=== PATIENT | female | born 1945 | race Caucasian/White ===

== ENCOUNTER → 2016-11-22 | Outpatient (CLI) | payer MEDICARE ==
--- NOTE | 2016-11-23 13:22 | MM ---
Reason for exam: screening (asymptomatic). Last mammogram was performed 1 year ago. History: Patient is postmenopausal and is nulliparous. Family history of breast cancer in mother at age 80. 2 benign excisional biopsies of the right breast, 1989. Physical Findings: A clinical breast exam by your physician is recommended on an annual basis and results should be correlated with mammographic findings. MG 3D Screening Mammo W/Cad Bilateral CC and MLO view(s) were taken. Prior study comparison: November 17, 2015, bilateral MG screening mammo w CAD. March 23, 2014, bilateral MG screening mammo w CAD. The breast tissue is extremely dense which could obscure a lesion on mammography. Benign calcifications. There is chronic nodularity bilaterally. There is no dominant lesion. No significant changes when compared with prior studies. ASSESSMENT: Benign, BI-RAD 2 RECOMMENDATION: Routine screening mammogram of both breasts in 1 year.
== END | disposition home or self-care (01) ==
LOC: RADMAMWWP 14:24
PROVIDERS: ATTEND Internal Medicine
DX: Z12.31 Encounter for screening mammogram for malignant neoplasm of breast (principal)
CPT/HCPCS: 77063; G0202

== ENCOUNTER → 2017-12-10 | Outpatient (CLI) | payer MEDICARE ==
--- NOTE | 2017-12-12 10:56 | MM ---
Reason for exam: screening (asymptomatic). Last mammogram was performed 1 year and 1 month ago. History: Patient is postmenopausal and is nulliparous. Family history of breast cancer in mother at age 80. 2 benign excisional biopsies of the right breast, 1989. Physical Findings: A clinical breast exam by your physician is recommended on an annual basis and results should be correlated with mammographic findings. MG 3D Screening Mammo W/Cad Bilateral CC and MLO view(s) were taken. Technologist: RT David (R)(M) Prior study comparison: November 22, 2016, bilateral MG 3d screening mammo w/cad. November 17, 2015, bilateral MG screening mammo w CAD. The breast tissue is extremely dense which could obscure a lesion on mammography. Benign appearing bilateral calcifications. No suspicious abnormality. No significant changes when compared with prior studies. ASSESSMENT: Benign, BI-RAD 2 RECOMMENDATION: Routine screening mammogram of both breasts in 1 year.
== END | disposition home or self-care (01) ==
LOC: RADMAMWWP 12:47
PROVIDERS: ATTEND Internal Medicine
DX: Z12.31 Encounter for screening mammogram for malignant neoplasm of breast (principal)
CPT/HCPCS: 77063; 77067

== ENCOUNTER → 2019-01-06 | Outpatient (CLI) | payer MEDICARE ==
--- NOTE | 2019-01-07 10:12 | MM ---
Reason for exam: screening (asymptomatic). Last mammogram was performed 1 year and 1 month ago. History: Patient is postmenopausal and is nulliparous. Family history of breast cancer in mother at age 80. 2 benign excisional biopsies of the right breast, 1989. Physical Findings: A clinical breast exam by your physician is recommended on an annual basis and results should be correlated with mammographic findings. MG 3D Screening Mammo W/Cad Bilateral CC and MLO view(s) were taken. Prior study comparison: December 10, 2017, bilateral MG 3d screening mammo w/cad. November 22, 2016, bilateral MG 3d screening mammo w/cad. The breast tissue is heterogeneously dense. This may lower the sensitivity of mammography. There are benign appearing round dystrophic calcifications bilaterally. There is no discrete abnormality. ASSESSMENT: Benign, BI-RAD 2 RECOMMENDATION: Routine screening mammogram of both breasts in 1 year.
== END | disposition home or self-care (01) ==
LOC: RADMAMWWP 10:51
PROVIDERS: ATTEND Internal Medicine
DX: Z12.31 Encounter for screening mammogram for malignant neoplasm of breast (principal)
CPT/HCPCS: 77063; 77067

== ENCOUNTER → 2019-02-27 | Outpatient (CLI) | payer MEDICARE ==
--- NOTE | 2019-02-27 14:51 | US ---
EXAMINATION TYPE: US venous doppler duplex LE LT DATE OF EXAM: 02/27/2019 2:32 PM COMPARISON: NONE CLINICAL HISTORY: ,M79.662 PAIN IN LT LOWER LEG. SIDE PERFORMED: Left TECHNIQUE: The lower extremity deep venous system is examined utilizing real time linear array sonog balta with graded compression, doppler sonography and color-flow sonography. VESSELS IMAGED: External Iliac Vein (EIV) Common Femoral Vein Deep Femoral Vein Greater Saphenous Vein * Femoral Vein Popliteal Vein Small Saphenous Vein * Proximal Calf Veins (* superficial vessels) Grayscale, color doppler, spectral doppler imaging performed of the deep veins of the left lower extr emity. There is normal flow, compressibility, vascular waveforms. Left Leg: Negative for DVT IMPRESSION: No sonographic evidence of deep venous thrombosis within the left lower extremity.
--- NOTE | 2019-02-27 15:08 | BD ---
EXAMINATION TYPE: Axial Bone Density DATE OF EXAM: 02/27/2019 COMPARISON: 11.17.2015 CLINICAL HISTORY: 73 YR OLD FEMALE....ICD-10 CODE: M85.89 OSTEOPENIA OF MULTIPLE SITES Height: 62.4 Weight: 144 FRAX RISK QUESTIONS: NOTHING TO NOTE HERE RISK FACTORS HISTORY OF: Active: YES Postmenopausal woman: YES IN HER EARLY 50s MEDICATIONS: Osteoporosis Medications: YES, FOSAMAX IN THE PAST FOR A FEW MONTHS Additional Medications: CINPERENE, REFLUX MEDS, STATIN FOR CHOLESTEROL, CALCIUM AND MULTIVITAMIN, Additional History: CHOLESTEROL, REFLUX EXAM MEASUREMENTS: Bone mineral densitometry was performed using the [employer] System. Bone mineral density as measured about the Lumbar spine is: ----- L1-L4(G/cm2): 1.056 T Score Values are as follows: ----- L1: -1.4 ----- L2: -1.7 ----- L3: -0.8 ----- L4: -0.5 ----- L1-L4: -1.0 Bone mineral density has: Decreased -0.1% since study of: 11.17.2015 Bone mineral density about the R hip (g/cm2): 0.941 Bone mineral density about the L hip (g/cm2): 0.938 T Score values are as follows: -----R Neck: -1.3 -----L Neck: -1.5 -----R Total: -0.5 -----L Total: -0.6 Bone mineral density has: Increased 1.8% since study of: 11.17.2015 FRAX%s: THERE IS A 10.9% CHANCE FOR A MAJOR OSTEOPOROTIC FX AND A 1.9% FOR HIP......PROBABILITY FOR FX IN 10 YRS TIME IMPRESSION: Osteopenia (T Score between -2.5 and -1). There is slightly increased risk of fracture and the patient may be considered for treatment. Re-Screen 2-5 years. NOTE: T-SCORE=SD OF THE YOUNG ADULT MEAN.
--- NOTE | 2019-02-27 15:17 | XR ---
EXAMINATION TYPE: XR lumbar spine 2 or 3V DATE OF EXAM: 02/27/2019 CLINICAL HISTORY: pain TECHNIQUE: Three views of the lumbar spine are submitted. COMPARISON: None. FINDINGS: There are 5 lumbar type vertebral bodies identified. The lumbar spine shows satisfactory alignment w ithout evidence of acute fracture or dislocation. Vertebral body heights are within normal limits. Moderate degenerative disc space narrowing and spondylosis. The overlying soft tissue appears unrema rkable. IMPRESSION: No acute fracture or dislocation is seen in the lumbar spine. ICD 10 NO FRACTURE, INITIAL EVALUATION
== END | disposition home or self-care (01) ==
LOC: RADUSWWP 14:08
PROVIDERS: ATTEND Internal Medicine
DX: M85.80 Other specified disorders of bone density and structure, unspecified site (principal); M79.662 Pain in left lower leg; M54.5 Low back pain; E78.2 Mixed hyperlipidemia
CPT/HCPCS: 72100; 77080

== ENCOUNTER → 2019-03-13 | Outpatient (CLI) | payer MEDICARE ==
--- NOTE | 2019-03-13 12:33 | CT ---
EXAMINATION TYPE: CT urogram wo/w con DATE OF EXAM: 03/13/2019 COMPARISON: None HISTORY: 73-year-old female Microscopic hematuria, right sided pain TECHNIQUE: Contiguous axial scanning of the abdomen and pelvis performed without and with IV Contrast , patient injected with 100 mL of Isovue 300. Delayed images through the kidneys and bladder were obt ained. Coronal/sagittal reconstructions performed. 3-D reconstructions generated on a dedicated [employer] workstation. CT DLP: 747.7 mGycm Automated exposure control for dose reduction was used. FINDINGS: Heart normal size without pericardial effusion. Lung bases clear without pleural effusion. Tiny hiatal hernia. There is a ovoid collection along the lateral margin of the inferior right liver lobe causing mild sc alloping of the underlying liver contour the area measures 5.0 cm AP by 1.9 cm wide by 5.2 cm cranioc audal. A noncontrast images, the area slightly hyperdense at 74 Hounsfield units and shows no appreciable en hancement on the contrast sequences. Similar smaller area below the left hemidiaphragm measuring 3.2 x 0.7 cm. Otherwise, no other focal liver lesion or biliary ductal dilatation. Portal venous system is patent. Gallbladder, adrenal glands, kidneys, spleen, and pancreas appear within normal limits. No nephrolithiasis or hydronephrosis. No suspicious renal lesion or filling defect seen within the re nal collecting systems. A short segment of the distal left ureter is nonopacified but otherwise, the bilateral ureters also a ppear unremarkable. No dilated small bowel, free fluid, or free air. No mesenteric or retroperitoneal lymphadenopathy. Scattered mild stool with generalized colonic diverticulosis, greatest in the sigmoid colon. There ma y be mild wall thickening and mild fat stranding along the proximal sigmoid, and axial image 65. The posterior surface of the bladder shows no suspicious contour abnormality. Only the posterior corn er of the bladder is opacified during the course of the study. Uterus anteverted. Question some parenchymal calcification or surgical material along the anterior ut erine body. Right ovary not clearly delineated from adjacent bowel loops. Left ovary is a 1.4 cm cyst ic structure within. No abnormal fluid collection in the pelvis. Bones: Mild degenerative changes at the hips. Facet arthropathy throughout the lumbar spine with grad e 1 retrolisthesis at L2-L5 levels. IMPRESSION: 1. AN OVOID HIGH DENSITY COLLECTION MEASURING 5.0 X 1.9 X 5.2 CM ALONG THE LATERAL MARGIN OF THE INFE RIOR RIGHT LIVER LOBE HAS SOME MASS EFFECT ON TO THE UNDERLYING LIVER PARENCHYMA. SOME TYPE OF HEMATO MA OR CHRONIC COMPLEX COLLECTION IS CONSIDERED GIVEN THE NONENHANCEMENT AND HIGH DENSITY. 2. SIMILAR SMALLER AREA MEASURING 3.2 X 0.7 CM IS PRESENT BELOW THE LEFT HEMIDIAPHRAGM. THE EXACT HALEIGH OLOGY IS UNCLEAR. CONSIDER ULTRASOUND TO ATTEMPT VISUALIZATION AND 3 MONTH FOLLOW-UP ULTRASOUND OR CT . 3. NO NEPHROLITHIASIS OR HYDRONEPHROSIS. NO SUSPICIOUS RENAL OR COLLECTING SYSTEM LESION. 4. COLONIC DIVERTICULOSIS, GREATEST IN THE SIGMOID COLON. THERE MAY BE MILD WALL THICKENING AND MILD INFLAMMATION ALONG THE PROXIMAL SIGMOID. CORRELATE FOR ANY SYMPTOMS OF MILD ACUTE DIVERTICULITIS.
== END | disposition home or self-care (01) ==
LOC: RADCTMAIN 08:01
PROVIDERS: ATTEND Internal Medicine
DX: K57.30 Diverticulosis of large intestine without perforation or abscess without bleeding (principal); K76.89 Other specified diseases of liver
CPT/HCPCS: 82565; 84520; 74178; 36415; 74400; Q9967

== ENCOUNTER → 2019-12-31 | Outpatient (CLI) | payer MEDICARE ==
--- NOTE | 2020-01-01 07:47 | CT ---
EXAMINATION TYPE: CT abdomen w con DATE OF EXAM: 12/31/2019 COMPARISON: 03/13/2019 HISTORY: Abnormal liver findings on prior CT. CT DLP: 401 mGycm CONTRAST: CT scan of the abdomen is performed with Oral Contrast and with IV Contrast, patient injected with 10 0 mL of Isovue M300. FINDINGS: LUNG BASES-: No visible nodule. No infiltrate. LIVER/GB: No calcified gallstones. Persistent ovoid collection along the lateral margin of the infe rior right liver lobe causing scalloping of the underlying liver contour and currently measuring 5.0 x 2.2 cm versus 5.0 x 1.9 cm previously. There is a similar-appearing ovoid lesion arising from the l ateral margin of the left hemidiaphragm image 16 measuring 3.4 cm x 7 mm versus 3.2 cm x 7 mm previou sly. No interval change is appreciated. No intrahepatic mass is identified with certainty. PANCREAS: No inflammation. No distinct mass. SPLEEN: No splenic enlargement. No lesion seen. ADRENALS: No nodule. No thickening. KIDNEYS/BLADDER: No hydronephrosis. No nephrolithiasis. No distinct renal mass. Urinary bladder g rossly unremarkable. BOWEL: Normal appendix. Normal bowel caliber. No inflammation. LYMPH NODES: No greater than 1cm abdominal or pelvic lymph nodes are appreciated. AORTA: No significant abnormality. OSSEOUS STRUCTURES: No significant abnormality is seen. OTHER: No significant additional abnormality is seen. IMPRESSION: 1. 1. Stable ovoid lesions along the lateral margin of the inferior right liver edge as well as a smalle r lesion arising from the left lateral hemidiaphragm. Suspect solid masses rather than complex collec tions. Consider MRI correlation. Mild hepatic steatosis noted.
== END | disposition home or self-care (01) ==
LOC: RADCTMAIN 14:49
PROVIDERS: ATTEND Surgery
DX: K76.0 Fatty (change of) liver, not elsewhere classified (principal); K76.9 Liver disease, unspecified; R93.2 Abnormal findings on diagnostic imaging of liver and biliary tract
CPT/HCPCS: 82565; 84520; 74160; 36415; Q9967 ×2

== ENCOUNTER → 2020-02-10 | Outpatient (CLI) | payer MEDICARE ==
--- NOTE | 2020-02-10 10:59 | MM ---
Reason for exam: screening (asymptomatic). Last mammogram was performed 1 year and 1 month ago. History: Patient is postmenopausal and is nulliparous. Family history of breast cancer in mother at age 80. 2 benign excisional biopsies of the right breast, 1989. Physical Findings: A clinical breast exam by your physician is recommended on an annual basis and results should be correlated with mammographic findings. MG 3D Screening Mammo W/Cad Bilateral CC and MLO view(s) were taken. Prior study comparison: January 06, 2019, bilateral MG 3d screening mammo w/cad. December 10, 2017, bilateral MG 3d screening mammo w/cad. The breast tissue is extremely dense which could obscure a lesion on mammography. There are benign appearing round dystrophic calcifications bilaterally, greater in the left breast. There is no discrete abnormality. ASSESSMENT: Benign, BI-RAD 2 RECOMMENDATION: Routine screening mammogram of both breasts in 1 year.
== END | disposition home or self-care (01) ==
LOC: RADMAMWWP 08:54
PROVIDERS: ATTEND Internal Medicine
DX: Z12.31 Encounter for screening mammogram for malignant neoplasm of breast (principal)
CPT/HCPCS: 77063; 77067

== ENCOUNTER → 2021-02-11 | Outpatient (CLI) | payer MEDICARE ==
--- NOTE | 2021-02-14 10:47 | MM ---
Reason for exam: screening (asymptomatic). Last mammogram was performed 1 year ago. History: Patient is postmenopausal and is nulliparous. Family history of breast cancer in mother at age 80. 2 benign excisional biopsies of the right breast, 1989. Physical Findings: A clinical breast exam by your physician is recommended on an annual basis and results should be correlated with mammographic findings. MG 3D Screening Mammo W/Cad Bilateral CC and MLO view(s) were taken. Prior study comparison: February 10, 2020, bilateral MG 3d screening mammo w/cad. January 06, 2019, bilateral MG 3d screening mammo w/cad. The breast tissue is extremely dense which could obscure a lesion on mammography. Stable benign calcifications. There is no discrete abnormality. No significant changes when compared with prior studies. ASSESSMENT: Benign, BI-RAD 2 RECOMMENDATION: Routine screening mammogram of both breasts in 1 year.
== END | disposition home or self-care (01) ==
LOC: RADMAMWWP 10:04
PROVIDERS: ATTEND Family Medicine
DX: Z12.31 Encounter for screening mammogram for malignant neoplasm of breast (principal); Z78.0 Asymptomatic menopausal state; Z80.3 Family history of malignant neoplasm of breast
CPT/HCPCS: 77063; 77067

== ENCOUNTER → 2021-04-01 | Outpatient (CLI) | payer MEDICARE ==
--- NOTE | 2021-04-01 16:01 | BD ---
EXAMINATION TYPE: Axial Bone Density DATE OF EXAM: 04/01/2021 COMPARISON: 02/27/2019 CLINICAL HISTORY: Height: 62 IN Weight: 136 LBS RISK FACTORS HISTORY OF: Active: YES Postmenopausal woman: AGE 51 Take estrogen and/or progesterone medications: NOT NOW How long: TOOK CONTROL FOR 5 YEARS MEDICATIONS: Osteoporosis Medications: YES Which medication: Evista How Lon+ YEARS Additional Medications: EVISTA, DEPRESSION MEDS, ATORVASTATIN, CALCIUM, VIT D EXAM MEASUREMENTS: Bone mineral densitometry was performed using the [employer] System. Bone mineral density as measured about the Lumbar spine is: ----- L1-L4(G/cm2): 1.012 T Score Values are as follows: ----- L2: -1.7 ----- L3: -1.5 ----- L4: -0.8 ----- L1-L4: -1.4 Bone mineral density has: Decreased -3.7% since study of: 02/27/2019 Bone mineral density about the R hip (g/cm2): 0.819 Bone mineral density about the L hip (g/cm2): 0.813 T Score values are as follows: -----R Neck: -1.6 -----L Neck: -1.6 -----R Total: -0.9 -----L Total: -1.0 Bone mineral density has: Decreased -5.3% since study of: 02/27/2019 IMPRESSION: Osteopenia (T Score between -2.5 and -1). There is slightly increased risk of fracture and the patient may be considered for treatment. Re-Screen 2-5 years. NOTE: T-SCORE=SD OF THE YOUNG ADULT MEAN.
== END | disposition home or self-care (01) ==
LOC: RADBDWWP 14:47
PROVIDERS: ATTEND Family Medicine
DX: M85.89 Other specified disorders of bone density and structure, multiple sites (principal); Z78.0 Asymptomatic menopausal state
CPT/HCPCS: 77080

== ENCOUNTER → 2023-02-14 | Outpatient (CLI) | payer MEDICARE ==
--- NOTE | 2023-02-15 11:02 | MM ---
Reason for Exam: Screening (asymptomatic). Last screening mammogram was performed 12 month(s) ago. Patient History: Menarche at age 13. Patient has no children. Postmenopausal. 1989, Benign Excisional Biopsy on the right side. 1989, Benign Excisional Biopsy on the right side. Mother had breast cancer, age 80. Risk Values: Carlita 5 year model risk: 5.2%. NCI Lifetime model risk: 10.3%. Prior Study Comparison: 02/10/2020 Bilateral Screening Mammogram, [facility]. 02/11/2021 Bilateral Screening Mammogram, [facility]. 02/13/2022 Bilateral MG 3D screening mammo w/cad, [facility]. Tissue Density: The breast tissue is extremely dense which could obscure a lesion on mammography. Findings: Analyzed By CAD. There is no suspicious group of microcalcifications or new suspicious mass in either breast. Overall Assessment: Benign, BI-RAD 2 Management: Screening Mammogram of both breasts in 1 year. . Patient should continue monthly self-breast exams. A clinical breast exam by your physician is recommended on an annual basis. This exam should not preclude additional follow-up of suspicious palpable abnormalities. Note on Carlita scores and lifetime risk: 1. A Carlita score greater than 3% is considered moderate risk. If this is the case, consider specialist referral to assess eligibility for a risk reducing agent. 2. If overall lifetime risk for the development of breast cancer is 20% or higher, the patient may qualify for future screening with alternating mammogram and breast MRI. Electronically signed and approved by: Jeffry Brunner M.D. Radiologis
== END | disposition home or self-care (01) ==
LOC: RADMAMWWP 11:04
PROVIDERS: ATTEND Student in an Organized Health Care Education/Training Program
DX: Z12.31 Encounter for screening mammogram for malignant neoplasm of breast (principal); Z78.0 Asymptomatic menopausal state; Z80.3 Family history of malignant neoplasm of breast
CPT/HCPCS: 77063; 77067

== ENCOUNTER → 2023-04-02 | Outpatient (CLI) | payer MEDICARE ==
--- NOTE | 2023-04-02 12:44 | BD ---
EXAMINATION TYPE: Axial Bone Density DATE OF EXAM: 04/02/2023 CLINICAL HISTORY: 77 years old Female. ICD-10 CODE: Z78.0 POST MENOPUASAL Height: 62 Weight: 122 FRAX RISK QUESTIONS: nothing to note here RISK FACTORS HISTORY OF: Postmenopausal woman: at 51. Take estrogen and/or progesterone medications: none now How lon yrs...bcps Hyperparathyroidism: no Adrenal Insufficiency: no MEDICATIONS: Osteoporosis Medications: yes, evista for 12+ yrs Additional Medications: statin for cholesterol, anti depressants, calcium, vitd, tums, Additional History: cholesterol, anxiety, low body wt, EXAM MEASUREMENTS: Bone mineral densitometry was performed using the [employer] System. Bone mineral density as measured about the Lumbar spine is: ----- L1-L4(G/cm2): 1.074 T Score Values are as follows: ----- L1: -1.5 ----- L2: -0.7 ----- L3: -1.0 ----- L4: -0.6 ----- L1-L4: -0.9 Z Score Values are as follows: ----- L1: 0.7 ----- L2: 1.4 ----- L3: 1.1 ----- L4: 1.5 ----- L1-L4: 1.2 Bone mineral density has: Increased 6.1% since study of: 04.01.2021 Bone mineral density about the R hip (g/cm2): 0.879 Bone mineral density about the L hip (g/cm2): 0.885 T Score values are as follows: -----R Neck: -1.7 -----L Neck: -1.7 -----R Total: -1.0 -----L Total: -1.0 Z Score values are as follows: -----R Neck: 0.5 -----L Neck: 0.5 -----R Total: 1.0 -----L Total: 1.1 Bone mineral density has: Decreased -0.8% since study of: 04.01.2021 FRAX%s: The graph provided illustrates a 12.1% chance for a major osteoporotic fx and a 3.0% chance f or the hips probability for fx in 10 years time. IMPRESSION: Osteopenia (T Score between -2.5 and -1). There is slightly increased risk of fracture and the patient may be considered for treatment. Re-Screen 2-5 years. NOTE: T-SCORE=SD OF THE YOUNG ADULT MEAN.
== END | disposition home or self-care (01) ==
LOC: RADBDWWP 10:43
PROVIDERS: ATTEND Student in an Organized Health Care Education/Training Program
DX: Z12.31 Encounter for screening mammogram for malignant neoplasm of breast (principal); M85.89 Other specified disorders of bone density and structure, multiple sites; Z78.0 Asymptomatic menopausal state
CPT/HCPCS: 77080

== ENCOUNTER → 2024-02-18 | Outpatient (CLI) | payer MEDICARE ==
--- NOTE | 2024-02-26 14:34 | MM ---
Reason for Exam: Screening (asymptomatic). Last screening mammogram was performed 12 month(s) ago. Patient History: Menarche at age 13. Patient has no children. Postmenopausal. 1989, Benign Excisional Biopsy on the right side. 1989, Benign Excisional Biopsy on the right side. Mother had breast cancer, age 80. Risk Values: Carlita 5 year model risk: 5.1%. NCI Lifetime model risk: 9.6%. Prior Study Comparison: 11/22/2016 Bilateral Screening Mammogram, [facility]. 12/10/2017 Bilateral Screening Mammogram, [facility]. 01/06/2019 Bilateral Screening Mammogram, [facility]. 02/10/2020 Bilateral Screening Mammogram, [facility]. 02/11/2021 Bilateral Screening Mammogram, [facility]. 02/13/2022 Bilateral MG 3D screening mammo w/cad, [facility]. 02/14/2023 Bilateral MG 3D screening mammo w/cad, [facility]. Tissue Density: The breasts are heterogeneously dense, which may obscure small masses. Findings: Analyzed By CAD. Left breast biopsy clip. Right breast: There is no suspicious group of microcalcifications or new suspicious mass. Benign-appearing calcifications right breast. Left breast: There is no suspicious group of microcalcifications or new suspicious mass. Benign-appearing calcifications left breast. Overall Assessment: Benign, BI-RAD 2 Management: Screening Mammogram of both breasts in [address] [facility] will attempt to contact patient to return for supplemental views and ultrasound if indicated. Patient should continue monthly self-breast exams. A clinical breast exam by your physician is recommended on an annual basis. This exam should not preclude additional follow-up of suspicious palpable abnormalities. Note on Carlita scores and lifetime risk: 1. A Carlita score greater than 3% is considered moderate risk. If this is the case, consider specialist referral to assess eligibility for a risk reducing agent. 2. If overall lifetime risk for the development of breast cancer is 20% or higher, the patient may qualify for future screening with alternating mammogram and breast MRI. Electronically signed and approved by: Bradly Zaidi DO
== END | disposition home or self-care (01) ==
LOC: RADMAMWWP 10:29
PROVIDERS: ATTEND Internal Medicine
DX: Z12.31 Encounter for screening mammogram for malignant neoplasm of breast
CPT/HCPCS: 77063; 77067